=== PATIENT | male | born 1995 | race African-American/Black ===

== ENCOUNTER 2018-07-09 10:56 | Emergency (ER) | payer SELFPAY ==
[~2018-07-09] VITALS: Ht 188 cm; Wt 82.0 kg
[2018-07-09] MEDS ORDERED: BACITRACIN ZINC OINT UDPKT TOP ONE (13:15)
[2018-07-09] MEDS ORDERED: LIDOCAINE HCL/PF 1% 10 MG/ML 5ML VIAL IJ ONE (13:15)
[2018-07-09 14:06] VITALS: BP 145/76
== END 2018-07-09 14:10 | disposition home or self-care (01) ==
LOC: ER 10:56
DX: L03.011 Cellulitis of right finger (principal); J45.909 Unspecified asthma, uncomplicated; Z79.82 Long term (current) use of aspirin
CPT/HCPCS: 10060; 99283; J3490

== ENCOUNTER 2020-10-27 21:02 | Emergency (ER) | payer MEDICAID ==
[~2020-10-27] VITALS: Ht 185.4 cm; Wt 82.0 kg
[2020-10-27 22:00] VITALS: BP 118/90
== END 2020-10-27 22:00 | disposition home or self-care (01) ==
LOC: ER 21:02
DX: F10.129 Alcohol abuse with intoxication, unspecified (principal); Y90.9 Presence of alcohol in blood, level not specified
CPT/HCPCS: 93005; 99283

== ENCOUNTER 2023-04-04 06:28 | Emergency (ER) | payer MEDICAID, MEDICARE ==
[~2023-04-04] VITALS: Ht 188 cm; Wt 89.0 kg
[2023-04-04 06:36] VITALS: BP 177/103; PULSE 83; RESP 18; TEMP 98; O2SAT 98
[2023-04-04] MEDS ORDERED: LIDO1ADH23 TP (08:27)
[2023-04-04] MEDS ORDERED: NAPR-1176 MT (08:27)
== END 2023-04-04 09:01 | disposition home or self-care (01) ==
LOC: ER 06:57
DX: M94.0 Chondrocostal junction syndrome [Tietze] (principal); M54.32 Sciatica, left side; J45.909 Unspecified asthma, uncomplicated
CPT/HCPCS: 71045; 99283